=== PATIENT | male | born 1955 | race Caucasian/White ===

== ENCOUNTER 2017-04-26 08:19 | Inpatient (IN) | payer BC ==
[~2017-04-26] VITALS: Ht 182.9 cm; Wt 108.3 kg
[2017-04-26] VITALS (9 sets, daily range): BP systolic 129–148; BP diastolic 60–87; PULSE 75–90; RESP 14–20; TEMP 97.3–98.6; O2SAT 94–96
[~2017-04-26 08:19] MED LIST: ASPI81TA11 OR; ETOD400T PO; EXEN10PE SQ; FENO134C PO; LISI-357 PO; METF-324 OR
[2017-04-26] MEDS ORDERED: CANA300T PO (08:35)
[2017-04-26] MEDS ORDERED: ASPI1TAB57 PO (08:35)
[2017-04-26] MEDS ORDERED: LISI-519 PO (08:35)
[2017-04-26] MEDS ORDERED: METF1000 PO (08:35)
[2017-04-26] MEDS ORDERED: SODIUM CHLORIDE 0.9% FLUSH 10 ML FLUSH IVF PRN (08:45)
[2017-04-26 08:54] LABS: AUTOMATED NEUTROPHIL # 4.6 TH/MM3 (1.8-7.7); BASOPHIL # 0.1 TH/MM3 (0-0.2); BASOPHIL % 0.9 % (0.0-2.0); EOSINOPHIL # 0.1 TH/MM3 (0-0.4); EOSINOPHIL % 2.2 % (0.0-4.0); HEMATOCRIT 46.1 % (39.0-51.0); HEMOGLOBIN 14.7 GM/DL (13.0-17.0); LYMPH % 22.4 % (9.0-44.0); LYMPHOCYTE # 1.5 TH/MM3 (1.0-4.8); MEAN CELL VOLUME 94.6 FL (80.0-100.0); MEAN CORPUSCULAR HEMOGLOBIN 30.3 PG (27.0-34.0); MEAN PLATELET VOLUME 8.6 FL (7.0-11.0); MONOCYTE # 0.5 TH/MM3 (0-0.9); NEUT % 66.5 % (16.0-70.0); PLATELET COUNT 257 TH/MM3 (150-450); RED BLOOD COUNT 4.87 MIL/MM3 (4.50-5.90); RED CELL DISTRIBUTION WIDTH 12.5 % (11.6-17.2); WHITE BLOOD COUNT 6.8 TH/MM3 (4.0-11.0)
[2017-04-26 09:01] LABS: CHLORIDE 101 MEQ/L (98-107); SODIUM (NA) 134 MEQ/L (136-145)
[2017-04-26 09:07] LABS: BICARBONATE 23.3 MEQ/L (21.0-32.0); BLOOD UREA NITROGEN 19 MG/DL (7-18); CALCIUM 9.7 MG/DL (8.5-10.1); GLUCOSE,RANDOM 262 MG/DL (74-106); PROTHROMBIN TIME - PATIENT 10.1 SEC (9.8-11.6)
[2017-04-26 09:10] LABS: ALT (GPT) 34 U/L (12-78); AST (GOT) 17 U/L (15-37); CREATININE 0.73 MG/DL (0.60-1.30); GLOMERULAR FILTRATION RATE 109 ML/MIN (>89)
[2017-04-26 09:12] LABS: TOTAL BILIRUBIN ADULT 0.5 MG/DL (0.2-1.0)
[2017-04-26 09:13] LABS: ALKALINE PHOSPHATASE 79 U/L (45-117)
--- NOTE | 2017-04-26 09:16 | PD ---
HPI . Weakness Chief Complaint: Neuro Symptoms/ Deficits Time Seen by Provider: 08:42 Travel History International Travel<30 days: No Contact w/Intl Traveler<30days: No Traveled to known affect area: No History of Present Illness HPI Patient is 61-year-old male who presents with weakness. Reports that 2-4 days ago he had a bad headache that originated from the back of his head. He took Advil the following day and said it went away. The next day he reported feeling unstable and noticed some weakness in his left knee and left hand. He mentions that the weakness has since improved. It seems to come and go. The patient denies any aggravating factors nor any alleviating factors. Patient denies any associated symptoms such as photophobia or blurred vision. Patient reports unrelated issues of sleeping and nocturia. PFSH Past Medical History Cancer: No Cardiovascular Problems: Yes (murmur) High Cholesterol: Yes Diabetes: Yes Patient Takes Glucophage: Yes Diminished Hearing: No Hepatitis: No Hiatal Hernia: No Hypertension: No Medical other: Yes (mild reflux) Respiratory: No Thyroid Disease: No Past Surgical History Pacemaker: No Other Surgery: Yes (RIGHT WRIST ) Social History Alcohol Use: Yes (SOCIAL) Tobacco Use: No Substance Use: No Allergies-Medications (Allergen,Severity, Reaction): Coded Allergies: No Known Allergies (Unverified Adverse Reaction, Unknown, 04/26/17) Reported Meds & Prescriptions Reported Meds & Active Scripts Active Reported Invokana (Canagliflozin) 300 Mg Tab 300 Mg PO DAILY Take before 1st meal of day. Metformin (Metformin HCl) 1,000 Mg Tab 1,000 Mg PO BIDPC Lisinopril 5 Mg Tab 5 Mg PO DAILY Aspirin 81 (Aspirin) 81 Mg Tabdr 81 Mg PO DAILY Review of Systems Except as stated in HPI: all other systems reviewed are Neg Eyes: No: Diploplia, Blurred Vision, Photophobia HENT: Positive: Headaches Cardiovascular: No: Syncope Genitourinary: Positive: Nocturia Neurologic: Positive: Weakness, Focal Abnormalities, Coordination Problem, No: Change in Mentation, Slurred Speech, Paresthesia, Incontinence, Seizures Physical Exam Narrative GENERAL: Pleasant male in no acute distress SKIN: warm/dry. HEAD: Normocephalic. EYES: Pupils equal and round. No scleral icterus. No injection or drainage. ENT: No nasal bleeding or discharge. Mucous membranes pink and moist. NECK: Trachea midline. Full range of motion without pain.. CARDIOVASCULAR: Regular rate and rhythm. RESPIRATORY: No accessory muscle use. Clear to auscultation. Breath sounds equal bilaterally. GASTROINTESTINAL: Abdomen soft. Nontender. Bowel sounds present. Nondistended. MUSCULOSKELETAL: No obvious deformities. NEUROLOGICAL: Awake and alert. No obvious cranial nerve deficits. Motor grossly within normal limits. Normal speech. Negative pronator drift. Normal pppvpc-[id number]-ohyreo exam. PSYCHIATRIC: Appropriate mood and affect; insight and judgment normal. Data Data Last Documented VS Vital Signs Date Time Temp Pulse Resp B/P (MAP) Pulse Ox O2 Delivery O2 Flow Rate FiO2 04/26/17 08:53 96 Room Air 04/26/17 08:29 16 04/26/17 08:22 98.1 82 146/68 (94) Orders Orders Electrocardiogram (04/26/17 08:42) Prothrombin Time / Inr (Pt) (04/26/17 08:42) Act Partial Throm Time (Ptt) (04/26/17 08:42) Complete Blood Count With Diff (04/26/17 08:42) Comprehensive Metabolic Panel (04/26/17 08:42) Ct Brain W/O Iv Contrast(Rout) (04/26/17 08:42) Chest, Single Ap (04/26/17 08:42) Ecg Monitoring (04/26/17 08:42) Iv Access Insert/Monitor (04/26/17 08:42) Oximetry (04/26/17 08:42) Sodium Chloride 0.9% Flush (Ns Flush) (04/26/17 08:45) Place In Observation (04/26/17 ) Vital Signs (Adult) BI.Q4H (04/26/17 09:57) Admit Order (Ed Use Only) (04/26/17 ) Bobbin Winder / Telemetry BI.Q8H (04/26/17 10:00) Vital Signs (Adult) Q4H (04/26/17 10:00) Diet 1999 Ada Cons Carb (04/26/17 Lunch) Activity Oob With Assistance (04/26/17 10:00) Notify Dr: Other (04/26/17 10:00) Labs Laboratory Tests Test 04/26/17 08:40 White Blood Count 6.8 TH/MM3 Red Blood Count 4.87 MIL/MM3 Hemoglobin 14.7 GM/DL Hematocrit 46.1 % Mean Corpuscular Volume 94.6 FL Mean Corpuscular Hemoglobin 30.3 PG Mean Corpuscular Hemoglobin Concent 32.0 % Red Cell Distribution Width 12.5 % Platelet Count 257 TH/MM3 Mean Platelet Volume 8.6 FL Neutrophils (%) (Auto) 66.5 % Lymphocytes (%) (Auto) 22.4 % Monocytes (%) (Auto) 8.0 % Eosinophils (%) (Auto) 2.2 % Basophils (%) (Auto) 0.9 % Neutrophils # (Auto) 4.6 TH/MM3 Lymphocytes # (Auto) 1.5 TH/MM3 Monocytes # (Auto) 0.5 TH/MM3 Eosinophils # (Auto) 0.1 TH/MM3 Basophils # (Auto) 0.1 TH/MM3 CBC Comment DIFF FINAL Differential Comment Prothrombin Time 10.1 SEC Prothromb Time International Ratio 1.0 RATIO Activated Partial Thromboplast Time 25.2 SEC Blood Urea Nitrogen 19 MG/DL Creatinine 0.73 MG/DL Random Glucose 262 MG/DL Total Protein 8.0 GM/DL Albumin 4.0 GM/DL Calcium Level 9.7 MG/DL Alkaline Phosphatase 79 U/L Aspartate Amino Transf (AST/SGOT) 17 U/L Alanine Aminotransferase (ALT/SGPT) 34 U/L Total Bilirubin 0.5 MG/DL Sodium Level 134 MEQ/L Potassium Level 4.3 MEQ/L Chloride Level 101 MEQ/L Carbon Dioxide Level 23.3 MEQ/L Anion Gap 10 MEQ/L Estimat Glomerular Filtration Rate 109 ML/MIN [facility] Medical Decision Making Medical Screen Exam Complete: Yes Emergency Medical Condition: Yes Interpretation(s) EKG shows a normal sinus rhythm with no acute ischemic change. Differential Diagnosis Differential diagnosis includes but is not limited to TIA, CVA, brain tumor, migraine, anxiety Narrative Course Patient presents with left-sided weakness which has been intermittent for the last several days. CBC & BMP Diagram 04/26/17 08:40 Total Protein 8.0, Albumin 4.0, Calcium Level 9.7, Alkaline Phosphatase 79, Aspartate Amino Transf (AST/SGOT) 17, Alanine Aminotransferase (ALT/SGPT) 34, Total Bilirubin 0.5 Coags are normal. Last Impressions Chest X-Ray 04/26/17 0842 Signed Impressions: Service Date/Time: Wednesday, April 26, 2017 09:12 - CONCLUSION: No acute disease. Elliot Melgar MD Head CT>>Unremarkable noncontrast CT. This patient is having symptoms compatible with stuttering TIA. I will request admission for further evaluation. Physician Communication Physician Communication Dr. Plata Diagnosis Primary Impression: TIA (transient ischemic attack) Qualified Codes: G45.1 - Carotid artery syndrome (hemispheric) Admitting Information Admitting Physician Requests: Observation Condition: Stable Tiffanie Pandey MD Apr 26, 2017 09:16
--- NOTE | 2017-04-26 09:25 | RADRPT ---
EXAM DATE/TIME: 04/26/2017 09:12 [facility] COMPARISON: No previous studies available for comparison. INDICATIONS : Headache, left side weakness, short of breath. MEDICAL HISTORY : Diabetes mellitus type II. Hypercholesterolemia. SURGICAL HISTORY : None. ENCOUNTER: Initial ACUITY: 3 days PAIN SCORE: 0/10 LOCATION: Bilateral chest FINDINGS: A single view of the chest demonstrates the lungs to be symmetrically aerated without evidence of mas s, infiltrate or effusion. The cardiomediastinal contours are unremarkable. Osseous structures are intact. There are multiple overlying electrocardiogram is CONCLUSION: No acute disease. Elliot Melgar MD on April 26, 2017 at 9:22 Board Certified Radiologist. This report was verified electronically.
--- NOTE | 2017-04-26 09:40 | RADRPT ---
EXAM DATE/TIME: 04/26/2017 09:28 [facility] COMPARISON: No previous studies available for comparison. INDICATIONS : Posterior headache. RADIATION DOSE: 60.61 CTDIvol (mGy) MEDICAL HISTORY : Hypercholesterolemia. Diabetes. SURGICAL HISTORY : None. ENCOUNTER: Initial ACUITY: 4 - 6 days PAIN SCALE: 4/10 LOCATION: occipital TECHNIQUE: Multiple contiguous axial images were obtained of the head. Using automated exposure control and adj ustment of the mA and/or kV according to patient size, radiation dose was kept as low as reasonably a chievable to obtain optimal diagnostic quality images. DICOM format image data is available electro nically for review and comparison. FINDINGS: CEREBRUM: The ventricles are normal for age. No evidence of midline shift, mass lesion, hemorrhage or acute in farction. No extra-axial fluid collections are seen. POSTERIOR FOSSA: The cerebellum and brainstem are intact. The 4th ventricle is midline. The cerebellopontine angle i s unremarkable. EXTRACRANIAL: The visualized portion of the orbits is intact. SKULL: The calvaria is intact. No evidence of skull fracture. CONCLUSION: Unremarkable noncontrast CT. Elliot Melgar MD on April 26, 2017 at 9:37 Board Certified Radiologist. This report was verified electronically.
--- NOTE | 2017-04-26 09:58 | HHI.HP ---
[facility] Service [facility] Primary Care Physician Loc Champion MD Admission Diagnosis Diagnoses: Travel History International Travel<30 Days: No Contact w/Intl Traveler <30 Da: No Traveled to Known Affected Are: No Past Family Social History Allergies: Coded Allergies: No Known Allergies (Unverified Adverse Reaction, Unknown, 04/26/17) Physical Exam Vital Signs Vital Signs Date Time Temp Pulse Resp B/P (MAP) Pulse Ox O2 Delivery O2 Flow Rate FiO2 04/26/17 08:53 96 Room Air 04/26/17 08:29 16 95 Room Air 04/26/17 08:22 98.1 82 16 146/68 (94) 95 Physical Exam GENERAL: This is a well-nourished, well-developed patient, in no apparent distress. SKIN: No rashes, ecchymoses or lesions. Cool and dry. HEAD: Atraumatic. Normocephalic. No temporal or scalp tenderness. EYES: Pupils equal round and reactive. Extraocular motions intact. No scleral icterus. No injection or drainage. ENT: Nose without bleeding, purulent drainage or septal hematoma. Throat without erythema, tonsillar hypertrophy or exudate. Uvula midline. Airway patent. NECK: Trachea midline. No JVD or lymphadenopathy. Supple, nontender, no meningeal signs. CARDIOVASCULAR: Regular rate and rhythm without murmurs, gallops, or rubs. RESPIRATORY: Clear to auscultation. Breath sounds equal bilaterally. No wheezes , rales, or rhonchi. GASTROINTESTINAL: Abdomen soft, non-tender, nondistended. No hepato-splenomegaly , or palpable masses. No guarding. MUSCULOSKELETAL: Extremities without clubbing, cyanosis, or edema. No joint tenderness, effusion, or edema noted. No calf tenderness. Negative Homans sign bilaterally. NEUROLOGICAL: Awake and alert. Cranial nerves II through XII intact. Motor and sensory grossly within normal limits. Five out of 5 muscle strength in all muscle groups. Normal speech. Laboratory Laboratory Tests Test 04/26/17 08:40 White Blood Count 6.8 Red Blood Count 4.87 Hemoglobin 14.7 Hematocrit 46.1 Mean Corpuscular Volume 94.6 Mean Corpuscular Hemoglobin 30.3 Mean Corpuscular Hemoglobin Concent 32.0 Red Cell Distribution Width 12.5 Platelet Count 257 Mean Platelet Volume 8.6 Neutrophils (%) (Auto) 66.5 Lymphocytes (%) (Auto) 22.4 Monocytes (%) (Auto) 8.0 Eosinophils (%) (Auto) 2.2 Basophils (%) (Auto) 0.9 Neutrophils # (Auto) 4.6 Lymphocytes # (Auto) 1.5 Monocytes # (Auto) 0.5 Eosinophils # (Auto) 0.1 Basophils # (Auto) 0.1 CBC Comment DIFF FINAL Differential Comment Prothrombin Time 10.1 Prothromb Time International Ratio 1.0 Activated Partial Thromboplast Time 25.2 Blood Urea Nitrogen 19 Creatinine 0.73 Random Glucose 262 Total Protein 8.0 Albumin 4.0 Calcium Level 9.7 Alkaline Phosphatase 79 Aspartate Amino Transf (AST/SGOT) 17 Alanine Aminotransferase (ALT/SGPT) 34 Total Bilirubin 0.5 Sodium Level 134 Potassium Level 4.3 Chloride Level 101 Carbon Dioxide Level 23.3 Anion Gap 10 Estimat Glomerular Filtration Rate 109 Result Diagram: 04/26/17 0840 04/26/17 0840 Caprini VTE Risk Assessment Caprini Risk Assessment Model Point Value = 1 Point Value = 2 Point Value = 3 Point Value = 5 Age 41-60 Minor surgery BMI > 25 kg/m2 Swollen legs Varicose veins or History of unexplained or recurrent spontaneous Oral contraceptives or hormone replacement Sepsis (< 1 month) Serious lung disease, including pneumonia (< 1 month) Abnormal pulmonary function Acute myocardial infarction Congestive heart failure (< 1 month) History of inflammatory bowel disease Medical patient at bed rest Age 61-74 Arthroscopic surgery Major open surgery (> 45 min) Laparoscopic surgery (> 45 min) Malignancy Confined to bed (> 72 hours) Immobilizing plaster cast Central venous access Age >= 75 History of VTE Family history of VTE Factor V Leiden Prothrombin [id number] Lupus anticoagulant Anticardiolipin antibodies Elevated serum homocysteine Heparin-induced thrombocytopenia Other congenital or acquired thrombophilia Stroke (< 1 month) Elective arthroplasty Hip, pelvis, or leg fracture Acute spinal cord injury (< 1 month) Prophylaxis Regimen Total Risk Factor Score Risk Level Prophylaxis Regimen 0-1 Low Early ambulation 2 Moderate Order ONE of the following: *Sequential Compression Device (SCD) *Heparin 5000 units SQ BID 3-4 Higher Order ONE of the following medications: *Heparin 5000 units SQ TID *Enoxaparin/Lovenox 40 mg SQ daily (WT < 150 kg, CrCl > 30 mL/min) *Enoxaparin/Lovenox 30 mg SQ daily (WT < 150 kg, CrCl > 10-29 mL/min) *Enoxaparin/Lovenox 30 mg SQ BID (WT < 150 kg, CrCl > 30 mL/min) AND/OR *Sequential Compression Device (SCD) 5 or more Highest Order ONE of the following medications: *Heparin 5000 units SQ TID (Preferred with Epidurals) *Enoxaparin/Lovenox 40 mg SQ daily (WT < 150 kg, CrCl > 30 mL/min) *Enoxaparin/Lovenox 30 mg SQ daily (WT < 150 kg, CrCl > 10-29 mL/min) *Enoxaparin/Lovenox 30 mg SQ BID (WT < 150 kg, CrCl > 30 mL/min) AND *Sequential Compression Device (SCD) Abundio Plata MD Apr 26, 2017 09:58
--- NOTE | 2017-04-26 14:04 | RADRPT ---
EXAM DATE/TIME: 04/26/2017 13:38 [facility] COMPARISON: No previous studies available for comparison. INDICATIONS : Transient ischemic attack. MEDICAL HISTORY : Diabetic. Hypercholesterolemia. Transient ischemic attack. SURGICAL HISTORY : Right wrist. ENCOUNTER: Initial ACUITY: 3 days PAIN SCORE: 110 LOCATION: Bilateral neck PEAK SYSTOLIC VELOCITIES (cm/sec): ICA/CCA RATIO: Right: 1.2 Left: 1.1 ICA: Right: 108 Left: 116 CCA: Right: 88 Left: 109 ECA: Right: 124 Left: 138 VERTEBRAL: Right: 52 antegrade Left: 83 antegrade Elevated flow velocities and ICA/CCA ratios have been found to correlate with increased degrees of vessel stenosis, calculated as percentage of diameter relative to a normal segment of distal ICA/CCA FINDINGS: RIGHT CAROTID: No significant stenosis is visualized. Minimal plaque is present in the bulb. The waveforms are withi n normal limits. LEFT CAROTID: No significant stenosis is visualized. The waveforms are within normal limits. VERTEBRAL ARTERIES: Antegrade flow is seen in both vertebral arteries. MISCELLANEOUS: None. CONCLUSION: Minimal plaque in the right carotid bulb with no evidence of stenosis. Elliot Melgar MD on April 26, 2017 at 14:01 Board Certified Radiologist. This report was verified electronically.
[2017-04-26] MEDS ORDERED: SODIUM CHLORIDE 0.9% FLUSH 10 ML FLUSH IV FLUSH PRN (14:45)
[2017-04-26] MEDS ORDERED: NALOXONE HCL 0.4 MG/ML AMP IV PUSH PRN (14:45)
[2017-04-26] MEDS ORDERED: SENNOSIDES 8.6 MG TAB PO PRN (15:00)
[2017-04-26] MEDS ORDERED: BISACODYL 10 MG SUPP RECTAL PRN (15:00)
[2017-04-26] MEDS ORDERED: ONDANSETRON HCL 4 MG/2 ML VIAL IVP PRN (15:00)
[2017-04-26] MEDS ORDERED: MAGNESIUM HYDROXIDE SUSP 30 ML CUP PO PRN (15:00)
[2017-04-26] MEDS ORDERED: ACETAMINOPHEN 325 MG TAB PO PRN (15:00)
--- NOTE | 2017-04-26 15:29 | HHI.HP ---
[facility] Loc Champion MD Admission Diagnosis Weakness Diagnoses: (1) TIA (transient ischemic attack) Chief Complaint: Weakness Headache Travel History International Travel<30 Days: No Contact w/Intl Traveler <30 Da: No Traveled to Known Affected Are: No History of Present Illness This is a pleasant 61-year-old male patient with a known medical history of hyperlipidemia and diabetes who presented EKG with complaints of weakness. Patient states that on Wednesday he developed a headache in the back of his head, states he took an abdominal and the headache resolved. The next day patient states that he actually rode his bike for 8 miles and felt well. When on Wednesday he developed a feeling of instability in his left knee and left upper extremity. He states that this feeling would intermittently come and go. He also complained of insomnia and anxiety the night of feeling unstable. He denies any associated symptoms including diplopia, lightheadedness, dizziness, nausea, vomiting, diarrhea, fevers, chills, chest pain, palpitations or dysuria. He denies falling at home. At the time of assessment all symptoms have resolved. Head CT unremarkable. Lab work essentially unremarkable. Glucose 262. Review of Systems Constitutional: DENIES: Fever, Weight loss, Chills Eyes: DENIES: Blurred vision, Diplopia Ears, nose, mouth, throat: DENIES: Tinnitus, Hearing loss, Vertigo Respiratory: DENIES: Cough, Sputum production, Shortness of breath Cardiovascular: DENIES: Chest pain, Palpitations, Syncope Gastrointestinal: DENIES: Abdominal pain, Black stools, Bloody stools, Constipation, Diarrhea, Nausea, Vomiting Neurologic: COMPLAINS OF: Headache, Localized weakness (left lower and upper extremity.), Poor Balance, DENIES: Speech Problems, Tremor Psychiatric: COMPLAINS OF: Anxiety Except as stated in HPI: all other systems reviewed are Neg Past Family Social History Past Medical History Hyperlipidemia Diabetes GERD Past Surgical History Right wrist surgery Reported Medications Active Reported Invokana (Canagliflozin) 300 Mg Tab 300 Mg PO DAILY Take before 1st meal of day. Metformin (Metformin HCl) 1,000 Mg Tab 1,000 Mg PO BIDPC Lisinopril 5 Mg Tab 5 Mg PO DAILY Aspirin 81 (Aspirin) 81 Mg Tabdr 81 Mg PO DAILY Allergies: Coded Allergies: No Known Allergies (Unverified Allergy, Unknown, 04/26/17) Active Ordered Medications Current Medications Medications (Trade) Dose Ordered Sig/Caden Route Start Time Stop Time Status Last Admin (NS Flush) 2 ml UNSCH PRN IV FLUSH 04/26/17 14:45 (NS Flush) 2 ml BID IV FLUSH 04/26/17 21:00 (Tylenol) 650 mg Q4H PRN PO 04/26/17 15:00 (Zofran Inj) 4 mg Q6H PRN IVP 04/26/17 15:00 (Narcan Inj) 0.4 mg UNSCH PRN IV PUSH 04/26/17 14:45 (Su-Colace) 1 tab BID PO 04/26/17 21:00 (Milk Of Magnesia Liq) 30 ml Q12H PRN PO 04/26/17 15:00 (Senokot) 17.2 mg Q12H PRN PO 04/26/17 15:00 (Dulcolax Supp) 10 mg DAILY PRN RECTAL 04/26/17 15:00 Family History Family history significant for diabetes and Alzheimer's. Social History Patient denies any current tobacco use, does admit to smoking for many years and had quit on 01/05/10. Admits to rare alcohol use. Denies any illicit drug use. Physical Exam Vital Signs Vital Signs Date Time Temp Pulse Resp B/P (MAP) Pulse Ox O2 Delivery O2 Flow Rate FiO2 04/26/17 15:00 90 04/26/17 12:22 88 16 148/75 (99) 95 04/26/17 12:00 98.6 89 20 145/81 (102) 94 04/26/17 10:36 81 16 148/76 (100) 95 Room Air 04/26/17 08:53 96 Room Air 04/26/17 08:29 16 95 Room Air 04/26/17 08:22 98.1 82 16 146/68 (94) 95 Physical Exam GENERAL: Well-nourished, well-developed obese patient in NAD. SKIN: Warm and dry. No rash. HEAD: Normocephalic. Atraumatic. EYES: Pupils equal and round. No scleral icterus. No injection or drainage. ENT: No nasal bleeding or discharge. Mucous membranes pink and moist. NECK: Supple. Trachea midline. CARDIOVASCULAR: Regular rate and rhythm. S1, S2 noted. No murmur appreciated. No chest pain. RESPIRATORY: No accessory muscle use. Clear to auscultation. Breath sounds equal bilaterally. GASTROINTESTINAL: Abdomen soft, non-tender, nondistended. Normoactive bowel sounds x4. MUSCULOSKELETAL: No obvious deformities. Extremities without clubbing, cyanosis , or edema. NEUROLOGICAL: Awake and alert. No obvious cranial nerve deficits. Motor grossly within normal limits. 5/5 muscle strength in bilateral upper and lower extremities. Normal speech. PSYCHIATRIC: Appropriate mood and affect; insight and judgment normal. Laboratory Laboratory Tests Test 04/26/17 08:40 White Blood Count 6.8 Red Blood Count 4.87 Hemoglobin 14.7 Hematocrit 46.1 Mean Corpuscular Volume 94.6 Mean Corpuscular Hemoglobin 30.3 Mean Corpuscular Hemoglobin Concent 32.0 Red Cell Distribution Width 12.5 Platelet Count 257 Mean Platelet Volume 8.6 Neutrophils (%) (Auto) 66.5 Lymphocytes (%) (Auto) 22.4 Monocytes (%) (Auto) 8.0 Eosinophils (%) (Auto) 2.2 Basophils (%) (Auto) 0.9 Neutrophils # (Auto) 4.6 Lymphocytes # (Auto) 1.5 Monocytes # (Auto) 0.5 Eosinophils # (Auto) 0.1 Basophils # (Auto) 0.1 CBC Comment DIFF FINAL Differential Comment Prothrombin Time 10.1 Prothromb Time International Ratio 1.0 Activated Partial Thromboplast Time 25.2 Blood Urea Nitrogen 19 Creatinine 0.73 Random Glucose 262 Total Protein 8.0 Albumin 4.0 Calcium Level 9.7 Alkaline Phosphatase 79 Aspartate Amino Transf (AST/SGOT) 17 Alanine Aminotransferase (ALT/SGPT) 34 Total Bilirubin 0.5 Sodium Level 134 Potassium Level 4.3 Chloride Level 101 Carbon Dioxide Level 23.3 Anion Gap 10 Estimat Glomerular Filtration Rate 109 Result Diagram: 04/26/17 0840 04/26/1740 Imaging Last Impressions Head CT 04/26/17 0842 Signed Impressions: Service Date/Time: Wednesday, April 26, 2017 09:28 - CONCLUSION: Unremarkable noncontrast CT. Elliot Melgar MD Chest X-Ray 04/26/17 0842 Signed Impressions: Service Date/Time: Wednesday, April 26, 2017 09:12 - CONCLUSION: No acute disease. Elliot Melgar MD Carotid Artery Ultrasound 04/26/17 0000 Signed Impressions: Service Date/Time: Wednesday, April 26, 2017 13:38 - CONCLUSION: Minimal plaque in the right carotid bulb with no evidence of stenosis. Elliot Melgar MD Septic Shock Reassessment Septic shock perfusion: reassessment completed Caprini VTE Risk Assessment Caprini VTE Risk Assessment: Mod/High Risk (score >= 2) Caprini Risk Assessment Model Point Value = 1 Point Value = 2 Point Value = 3 Point Value = 5 Age 41-60 Minor surgery BMI > 25 kg/m2 Swollen legs Varicose veins or History of unexplained or recurrent spontaneous Oral contraceptives or hormone replacement Sepsis (< 1 month) Serious lung disease, including pneumonia (< 1 month) Abnormal pulmonary function Acute myocardial infarction Congestive heart failure (< 1 month) History of inflammatory bowel disease Medical patient at bed rest Age 61-74 Arthroscopic surgery Major open surgery (> 45 min) Laparoscopic surgery (> 45 min) Malignancy Confined to bed (> 72 hours) Immobilizing plaster cast Central venous access Age >= 75 History of VTE Family history of VTE Factor V Leiden Prothrombin [id number] Lupus anticoagulant Anticardiolipin antibodies Elevated serum homocysteine Heparin-induced thrombocytopenia Other congenital or acquired thrombophilia Stroke (< 1 month) Elective arthroplasty Hip, pelvis, or leg fracture Acute spinal cord injury (< 1 month) Prophylaxis Regimen Total Risk Factor Score Risk Level Prophylaxis Regimen 0-1 Low Early ambulation 2 Moderate Order ONE of the following: *Sequential Compression Device (SCD) *Heparin 5000 units SQ BID 3-4 Higher Order ONE of the following medications: *Heparin 5000 units SQ TID *Enoxaparin/Lovenox 40 mg SQ daily (WT < 150 kg, CrCl > 30 mL/min) *Enoxaparin/Lovenox 30 mg SQ daily (WT < 150 kg, CrCl > 10-29 mL/min) *Enoxaparin/Lovenox 30 mg SQ BID (WT < 150 kg, CrCl > 30 mL/min) AND/OR *Sequential Compression Device (SCD) 5 or more Highest Order ONE of the following medications: *Heparin 5000 units SQ TID (Preferred with Epidurals) *Enoxaparin/Lovenox 40 mg SQ daily (WT < 150 kg, CrCl > 30 mL/min) *Enoxaparin/Lovenox 30 mg SQ daily (WT < 150 kg, CrCl > 10-29 mL/min) *Enoxaparin/Lovenox 30 mg SQ BID (WT < 150 kg, CrCl > 30 mL/min) AND *Sequential Compression Device (SCD) Assessment and Plan Problem List: (1) TIA (transient ischemic attack) ICD Code: G45.9 - Transient cerebral ischemic attack, unspecified Status: Acute Plan: Rule out acute CVA Patient with headache and left lower and upper extremity weakness. All symptoms have resolved. CT of the head reviewed unremarkable. MRI of the brain done and results pending. Follow. Carotid ultrasound reviewed showing minimal plaque in the right carotid bulb but no evidence of stenosis. Chest x-ray reviewed showing no acute disease. Vital signs are stable. Allow for permissive hypertension. Continue cardiac telemetry, monitor for any arrhythmias. Echocardiogram ordered and pending. Follow results. PT eval ordered, appreciate input and recommendations. Supplemental O2 as needed, patient comfortable on room air. Given aspirin. Placed on daily aspirin. (2) Type 2 diabetes mellitus ICD Code: E11.9 - Type 2 diabetes mellitus without complications Plan: Place on Accu-Cheks before meals and at bedtime, sliding scale, cover as needed. DVT prophylaxis: SCDs. Assessment and Plan Monitor overnight, if symptoms have completely resolved and MRI negative will discharge tomorrow. Problem Qualifiers (1) TIA (transient ischemic attack): Qualified Codes: G45.1 - Carotid artery syndrome (hemispheric) Dori Escoto Apr 26, 2017 15:29
[2017-04-26] MEDS ORDERED: DEXTROSE 50% IN WATER 50 ML VIAL(D50) IV PUSH PRN (16:45)
[2017-04-26] MEDS ORDERED: GLUCAGON 1 MG/ML VIAL OTHER PRN (16:45)
[2017-04-26] MEDS: INSULIN ASPART SUPPLEMENTAL SCALE SQ SCH ×2 (17:00→20:16)
[2017-04-26] MEDS ORDERED: ASPIRIN 325 MG TAB PO ONE (17:00)
--- NOTE | 2017-04-26 18:33 | RADRPT ---
EXAM DATE/TIME: 04/26/2017 15:32 [place] COMPARISON: CT BRAIN W/O CONTRAST, April 26, 2017, 9:28. INDICATIONS : CVA. MEDICAL HISTORY : Diabetes mellitus type 2. SURGICAL HISTORY : Rt wrist. ENCOUNTER: Initial ACUITY: 2 day PAIN SCORE: 0/10 LOCATION: head TECHNIQUE: Multiplanar, multisequence MRI of the brain was performed without contrast. FINDINGS: CEREBRUM: There is a focal signal abnormality involving the right inferior tanja which is suggestive of acute/yen bacute lacunar infarct. Clinical correlation is recommended. WHITE MATTER: Mild periventricular white matter small vessel ischemic changes are noted bilaterally. POSTERIOR FOSSA: The cerebellum and brainstem are intact. The 4th ventricle is midline. The cerebellopontine angle is unremarkable. The cerebellar tonsils are normal in position. DIFFUSION IMAGING: No focal areas of restricted diffusion are seen. No evidence of acute infarction. EXTRACRANIAL: The visualized portions of the orbits and paranasal sinuses are unremarkable. CONCLUSION: 1. Local signal abnormality within the right inferior tanja which is suggestive of acute/subacute lacu erna infarct. Clinical correlation is recommended. 2. Mild periventricular white matter small vessel ischemic changes bilaterally. 3. No acute hemorrhage, midline shift or extra axial fluid collections. Rome Nicholas MD on April 26, 2017 at 18:28 Board Certified Radiologist. This report was verified electronically.
--- NOTE | 2017-04-26 19:48 | EKG ---
Date Performed: 04/26/2017 Time Performed: 09:04:28 PTAGE: 61 years EKG: Sinus rhythm Since previous tracing, no significant change noted NORMAL ECG PREVIOUS TRACING : 03/04/2012 13.44 DOCTOR: Travis Epps Interpretating Date/Time 04/26/2017 19:47:29
[2017-04-26] MEDS: DOCUSATE SODIUM 50 MG/SENNA 8.6 MG TAB PO SCH (20:15)
[2017-04-26] MEDS: SODIUM CHLORIDE 0.9% FLUSH 10 ML FLUSH IV FLUSH SCH (20:16)
[2017-04-27] VITALS (10 sets, daily range): BP systolic 117–172; BP diastolic 59–81; PULSE 72–93; RESP 14–18; TEMP 96.1–98.8; O2SAT 96–99
[2017-04-27 06:43] LABS: AUTOMATED NEUTROPHIL # 4.5 TH/MM3 (1.8-7.7); BASOPHIL # 0.1 TH/MM3 (0-0.2); EOSINOPHIL # 0.2 TH/MM3 (0-0.4); EOSINOPHIL % 2.3 % (0.0-4.0); HEMATOCRIT 42.8 % (39.0-51.0); LYMPH % 27.1 % (9.0-44.0); MEAN CELL VOLUME 94.4 FL (80.0-100.0); MEAN CORPUSCULAR HGB CONC 32.8 % (32.0-36.0); MEAN PLATELET VOLUME 8.8 FL (7.0-11.0); MONOCYTE # 0.7 TH/MM3 (0-0.9); NEUT % 60.6 % (16.0-70.0); PLATELET COUNT 229 TH/MM3 (150-450); RED BLOOD COUNT 4.53 MIL/MM3 (4.50-5.90); RED CELL DISTRIBUTION WIDTH 12.7 % (11.6-17.2); WHITE BLOOD COUNT 7.5 TH/MM3 (4.0-11.0)
[2017-04-27 07:03] LABS: CALCIUM 9.1 MG/DL (8.5-10.1)
[2017-04-27 07:06] LABS: CREATININE 0.7 MG/DL (0.60-1.30)
[2017-04-27] MEDS: INSULIN ASPART SUPPLEMENTAL SCALE SQ SCH ×4 (08:00→22:32)
[2017-04-27] MEDS: SODIUM CHLORIDE 0.9% FLUSH 10 ML FLUSH IV FLUSH SCH ×2 (08:58→22:32)
[2017-04-27] MEDS: ASPIRIN EC 81 MG TABEC PO SCH (08:58)
[2017-04-27] MEDS: DOCUSATE SODIUM 50 MG/SENNA 8.6 MG TAB PO SCH ×2 (08:58→21:00)
[2017-04-27] MEDS ORDERED: LANTUS2P SQ (11:25)
[2017-04-27 11:35] LABS: CHOLESTEROL/ HDL RATIO 6.94 RATIO; HDL CHOLESTEROL 34.4 MG/DL (40.0-60.0)
--- NOTE | 2017-04-27 11:40 | HHI.PR ---
Subjective Remarks Patient is 61-year-old gentleman who was seen and evaluated in follow-up for acute neurological deficits which appeared be related to lacunar infarct is acute. this stroke workup still in progress Objective Vitals Vital Signs Date Time Temp Pulse Resp B/P (MAP) Pulse Ox O2 Delivery O2 Flow Rate FiO2 04/27/17 09:59 96 21 04/27/17 08:00 97.6 85 14 172/81 (111) 96 04/27/17 04:00 96.1 77 18 117/59 (78) 97 04/27/17 00:43 72 04/27/17 00:00 98.8 73 18 128/80 (96) 97 04/26/17 20:00 98.6 75 20 129/60 (83) 94 04/26/17 20:00 94 21 04/26/17 18:00 97.3 86 14 137/87 (104) 95 04/26/17 16:00 95 21 04/26/17 15:00 90 04/26/17 12:22 88 16 148/75 (99) 95 04/26/17 12:00 98.6 89 20 145/81 (102) 94 I/O 04/26/17 04/26/17 04/26/17 04/27/17 04/27/17 04/27/17 07:00 15:00 23:00 07:00 15:00 23:00 Intake Total 420 ml 420 ml 222 ml Balance 420 ml 420 ml 222 ml Intake Oral 420 ml 420 ml 222 ml # Voids 6 2 # Bowel Movements 1 0 Result Diagram: 04/27/17 0515 04/27/17 0515 Imaging Last Impressions Head CT 04/26/1742 Signed Impressions: Service Date/Time: Wednesday, April 26, 2017 09:28 - CONCLUSION: Unremarkable noncontrast CT. Elliot Melgar MD Chest X-Ray 04/26/1742 Signed Impressions: Service Date/Time: Wednesday, April 26, 2017 09:12 - CONCLUSION: No acute disease. Elliot Melgar MD Carotid Artery Ultrasound 04/26/17 0000 Signed Impressions: Service Date/Time: Wednesday, April 26, 2017 13:38 - CONCLUSION: Minimal plaque in the right carotid bulb with no evidence of stenosis. Elliot Melgar MD Brain MRI 04/26/17 0000 Signed Impressions: Service Date/Time: Wednesday, April 26, 2017 15:32 - CONCLUSION: 1. Local signal abnormality within the right inferior tanja which is suggestive of acute/subacute lacunar infarct. Clinical correlation is recommended. 2. Mild periventricular white matter small vessel ischemic changes bilaterally. 3. No acute hemorrhage, midline shift or extra axial fluid collections. Rome Nicholas MD Objective Remarks GENERAL: This is a well-nourished, well-developed patient, in no apparent distress. CARDIOVASCULAR: Regular rate and rhythm without murmurs, gallops, or rubs. RESPIRATORY: Clear to auscultation. Breath sounds equal bilaterally. No wheezes , rales, or rhonchi. GASTROINTESTINAL: Abdomen soft, non-tender, nondistended. Normal active bowel sounds MUSCULOSKELETAL: Extremities without clubbing, cyanosis, or edema. NEURO: Left arm and leg weakness, Alert & Oriented x4 to person, place, time, situation. Moves all ext x4 A/P Problem List: (1) Type 2 diabetes mellitus ICD Code: E11.9 - Type 2 diabetes mellitus without complications Plan: Continue with Accu-Cheks, will add insulin due to uncontrolled blood sugars Patient education certified diabetes educator consult (2) Lacunar infarct, acute ICD Code: I63.9 - Cerebral infarction, unspecified Plan: No evidence of arrhythmia on telemetry, Acute on MRI, continue with risk stratification assessment Follow-up echocardiogram, continue with OT/PT Patient education We'll add statin, plavix to aspirin Discharge Planning Likely discharge in a.m. with physical therapy Ivy Kruger MD Apr 27, 2017 11:40
[2017-04-27] MEDS ORDERED: PLAV75TA29 PO (11:41)
[2017-04-27] MEDS: CLOPIDOGREL 75 MG TAB PO SCH (13:41)
--- NOTE | 2017-04-27 15:35 | ECHRPT ---
Indication: SHORTNESS OF BREATH CONCLUSIONS Normal left ventricular size. Wall thickness is normal. The left ventricular systolic function is normal with an estimated ejection fraction in the range of 55-60%. No atrial level shunt is demonstrated by color flow Doppler interrogation. There is trace tricuspid valve regurgitation. BP: 117 / 59 HR: 77 Rhythm: Sinus MEASUREMENTS (Male / Female) Normal Values Technical Quality:Fair 2D ECHO LV Diastolic Diameter PLAX 4.7 cm 4.2 - 5.9 / 3.9 - 5.3 cm LV Systolic Diameter PLAX 3.5 cm IVS Diastolic Thickness 1.0 cm 0.6 - 1.0 / 0.6 - 0.9 cm LVPW Diastolic Thickness 1.0 cm 0.6 - 1.0 / 0.6 - 0.9 cm LV Relative Wall Thickness 0.4 RV Internal Dim ED PLAX 3.0 cm LVOT Diameter 2.0 cm Aortic Root Diameter 3.4 cm LA Systolic Diameter LX 2.8 cm 3.0 - 4.0 / 2.7 - 3.8 cm M-MODE AV Cusp Separation MM 1.9 cm DOPPLER AV Peak Velocity 216.0 cm/s AV Peak Gradient 18.7 mmHg AV Mean Gradient 10.0 mmHg AV Velocity Time Integral 39.5 cm LVOT Peak Velocity 111.0 cm/s LVOT Peak Gradient 4.9 mmHg LVOT Velocity Time Integral 18.2 cm LVOT Cardiac Index 1851.6 cm/minm AV Area Cont Eq vti 1.4 cm AV Area Cont Eq pk 1.6 cm Mitral E Point Velocity 76.0 cm/s Mitral A Point Velocity 84.4 cm/s Mitral E to A Ratio 0.9 LV E' Lateral Velocity 9.6 cm/s Mitral E to LV E' Lateral Ratio 8.0 LV E' Septal Velocity 6.8 cm/s Mitral E to LV E' Septal Ratio 11.1 PV Peak Velocity 79.0 cm/s PV Peak Gradient 2.5 mmHg FINDINGS LEFT VENTRICLE Normal left ventricular size. Wall thickness is normal. The left ventricular systolic function is normal with an estimated ejection fraction in the range of 55-60%. RIGHT VENTRICLE Normal right ventricular size and systolic function. LEFT ATRIUM The left atrial size is normal. RIGHT ATRIUM The right atrial size is normal. ATRIAL SEPTUM No atrial level shunt is demonstrated by color flow Doppler interrogation. AORTA The aortic root and proximal ascending aorta are normal in size on limited imaging. MITRAL VALVE Structurally normal mitral valve. No mitral valve stenosis or regurgitation. AORTIC VALVE Trileaflet aortic valve. No aortic valve stenosis or regurgitation. TRICUSPID VALVE There is trace tricuspid valve regurgitation. Normal estimated pulmonary pressures. PULMONARY VALVE No pulmonary valve regurgitation or stenosis. VESSELS The inferior vena cava is normal in size. PERICARDIUM No pericardial effusion. Juan Vizcarra MD (Electronically Signed) Final Date:27 April 2017 15:34
[2017-04-27 16:50] LABS: HEMOGLOBIN A1C 11.1 % (4.3-6.0)
[2017-04-28] VITALS: BP 130/71; PULSE 73; RESP 18; TEMP 97; O2SAT 95
[2017-04-28 04:00] VITALS: BP 140/72; PULSE 70; RESP 18; TEMP 97.2; O2SAT 96
[2017-04-28 08:00] VITALS: BP 149/87; PULSE 76; PULSE 87; RESP 14; TEMP 95.4; O2SAT 95
[2017-04-28] MEDS: INSULIN ASPART SUPPLEMENTAL SCALE SQ SCH ×2 (08:00→12:22)
[2017-04-28] MEDS: DOCUSATE SODIUM 50 MG/SENNA 8.6 MG TAB PO SCH (09:00)
[2017-04-28] MEDS ORDERED: LISINOPRIL 5 MG TAB PO SCH (09:00)
[2017-04-28] MEDS: SODIUM CHLORIDE 0.9% FLUSH 10 ML FLUSH IV FLUSH SCH (09:05)
[2017-04-28] MEDS: CLOPIDOGREL 75 MG TAB PO SCH (09:06)
[2017-04-28] MEDS: ASPIRIN EC 81 MG TABEC PO SCH (09:06)
--- NOTE | 2017-04-28 11:27 | HHI.DCPOC ---
Discharge Care Plan Diagnosis: (1) Lacunar infarct, acute (2) Type 2 diabetes mellitus Goals to Promote Your Health * To prevent worsening of your condition and complications * To maintain your health at the optimal level Directions to Meet Your Goals Take your medications as prescribed Follow your dietary instruction Follow activity as directed Keep your appointments as scheduled Take your immunizations and boosters as scheduled If your symptoms worsen call your PCP, if no PCP go to Urgent Care Center or Emergency Room Smoking is Dangerous to Your Health. Avoid second hand smoke Call the 24-hour hour crisis hotline for domestic abuse at Ivy Kruger MD Apr 28, 2017 11:27
--- NOTE | 2017-04-28 11:34 | HHI.DS ---
Discharge Summary Admission Date Apr 26, 2017 at 10:02 Discharge Date: Apr 28, 2017 Admitting Diagnosis Weakness (1) Type 2 diabetes mellitus ICD Code: E11.9 - Type 2 diabetes mellitus without complications (2) Lacunar infarct, acute ICD Code: I63.9 - Cerebral infarction, unspecified Procedures none Brief History - From Admission This is a pleasant 61-year-old male patient with a known medical history of hyperlipidemia and diabetes who presented EKG with complaints of weakness. Patient states that on Wednesday he developed a headache in the back of his head, states he took an abdominal and the headache resolved. The next day patient states that he actually rode his bike for 8 miles and felt well. When on Wednesday he developed a feeling of instability in his left knee and left upper extremity. He states that this feeling would intermittently come and go. He also complained of insomnia and anxiety the night of feeling unstable. He denies any associated symptoms including diplopia, lightheadedness, dizziness, nausea, vomiting, diarrhea, fevers, chills, chest pain, palpitations or dysuria. He denies falling at home. At the time of assessment all symptoms have resolved. Head CT unremarkable. Lab work essentially unremarkable. Glucose 262. CBC/BMP: 04/27/17 0515 04/27/17 0515 Significant Findings Laboratory Tests Test 04/26/17 08:40 04/27/17 05:15 Blood Urea Nitrogen 19 MG/DL (7-18) 19 MG/DL (7-18) Random Glucose 262 MG/DL (74-106) 229 MG/DL (74-106) Sodium Level 134 MEQ/L (136-145) Monocytes (%) (Auto) 9.0 % (0.0-8.0) Hemoglobin A1c 11.1 % (4.3-6.0) Triglycerides Level 301 MG/DL (42-150) Cholesterol Level 239 MG/DL (120-200) LDL Cholesterol 144 MG/DL (0-99) HDL Cholesterol 34.4 MG/DL (40.0-60.0) Imaging Last Impressions Head CT 04/26/17 0842 Signed Impressions: Service Date/Time: Wednesday, April 26, 2017 09:28 - CONCLUSION: Unremarkable noncontrast CT. Elliot Melgar MD Chest X-Ray 04/26/17 0842 Signed Impressions: Service Date/Time: Wednesday, April 26, 2017 09:12 - CONCLUSION: No acute disease. Elliot Melgar MD Carotid Artery Ultrasound 04/26/17 0000 Signed Impressions: Service Date/Time: Wednesday, April 26, 2017 13:38 - CONCLUSION: Minimal plaque in the right carotid bulb with no evidence of stenosis. Elliot Melgar MD Brain MRI 04/26/17 0000 Signed Impressions: Service Date/Time: Wednesday, April 26, 2017 15:32 - CONCLUSION: 1. Local signal abnormality within the right inferior tanja which is suggestive of acute/subacute lacunar infarct. Clinical correlation is recommended. 2. Mild periventricular white matter small vessel ischemic changes bilaterally. 3. No acute hemorrhage, midline shift or extra axial fluid collections. Rome Nicholas MD PE at Discharge GENERAL: This is a well-nourished, well-developed patient, in no apparent distress. CARDIOVASCULAR: Regular rate and rhythm without murmurs, gallops, or rubs. RESPIRATORY: Clear to auscultation. Breath sounds equal bilaterally. No wheezes , rales, or rhonchi. GASTROINTESTINAL: Abdomen soft, non-tender, nondistended. Normal active bowel sounds MUSCULOSKELETAL: Extremities without clubbing, cyanosis, or edema. NEURO: Left arm and leg weakness, Alert & Oriented x4 to person, place, time, situation. Moves all ext x4 Pt update on day of discharge Patient seen and evaluated in follow-up for acute lacunar infarct. Doing well and discharged from rehabilitation services Patient was seen by general utility worker. Discharge plans discussed with patient as well as his significant other Hospital Course This patient is a 61-year-old gentleman with uncontrolled diabetes due to nonadherence with diet. His hemoglobin A1c is 11. He did come in with acute onset of weakness which is seems to be related to an acute lacunar infarct. Patient's medications were adjusted to promote diabetic control. Insulin was added, he was seen by the general utility worker and his diet adherence was addressed. The patient did have evaluation for further risk factors of stroke. We was seen by rehabilitation services. Pt Condition on Discharge: Good Discharge Disposition: Discharge Home Discharge Time: <= 30 minutes Discharge Instructions DIET: Follow Instructions for: Heart Healthy Diet, Diabetic Diet Activities you can perform: Regular-No Restrictions Follow up Referrals: PCP Follow-up - 1 Week New Medications: Insulin Glargine Inj (Lantus Inj) 1,000 Unit/10 Ml Vial 4 UNITS SQ HS for Blood Sugar Management, #30 VIAL 0 Refills Clopidogrel (Plavix) 75 Mg Tab 75 MG PO DAILY for cva, #31 TAB Continued Medications: Aspirin DR (Aspirin 81) 81 Mg Tabdr 81 MG PO DAILY, TAB 0 Refills Lisinopril (Lisinopril) 5 Mg Tab 5 MG PO DAILY for Blood Pressure Management, #30 TAB 0 Refills Metformin (Metformin) 1,000 Mg Tab 1000 MG PO BIDPC for Blood Sugar Management, #60 TAB 0 Refills Discontinued Medications: Canagliflozin (Invokana) 300 Mg Tab 300 MG PO DAILY for Blood Sugar Management, #30 TAB 0 Refills Take before 1st meal of day. Ivy Kruger MD Apr 28, 2017 11:34
[2017-04-28 12:00] VITALS: BP 127/64; PULSE 81; RESP 14; TEMP 98; O2SAT 97
== END 2017-04-28 13:30 | disposition home or self-care (01) | DRG 66 ==
LOC: PHED 08:19 → PHEDA 10:02 → PH3A 12:22 → OBSVTOIN 04-28 11:34
PROVIDERS: ADMIT Hospitalist; ATTEND Hospitalist
DX: I63.9 Cerebral infarction, unspecified (principal); E11.65 Type 2 diabetes mellitus with hyperglycemia; E78.5 Hyperlipidemia, unspecified; G47.00 Insomnia, unspecified; F41.9 Anxiety disorder, unspecified; Z79.84 Long term (current) use of oral hypoglycemic drugs; Z87.891 Personal history of nicotine dependence
CPT/HCPCS: 70450; 70551; 71045; 80048; 80053; 80061; 82948; 83036; 85025; 85610; 85730; 93005; 93306; 93880; 96372; G0378; G8987-GO; G8987-GP; G8988-GO; G8988-GP; G8989-GO; G8996-GN; G8997-GN; G8998-GN; J1815